=== PATIENT | female | born 1995 | race Caucasian/White ===

== ENCOUNTER 2016-09-20 12:23 | Day surgery (SDC) | payer OTHER ==
[~2016-09-20] VITALS: Ht 152.4 cm; Wt 41.0 kg
[~2016-09-20 12:23] MED LIST: METO5TAB2 PO; OMEP20CA16 PO; ONDA4TAB95 PO
[2016-09-20 13:17] VITALS: Ht 152.4 cm; Wt 41.0 kg
[2016-09-20 13:38] VITALS: BP 119/76; PULSE 84; RESP 14
[2016-09-20] MEDS ORDERED: LIDOCAINE 2% (SDV) 5 ML INJ ONE (13:59)
[2016-09-20] MEDS ORDERED: PROPOFOL 20 ML ONE ×2 (13:59→14:55)
[2016-09-20 15:03] VITALS: BP 111/70; RESP 22
--- NOTE | 2016-09-20 15:44 | GILP ---
DATE OF PROCEDURE: 09/20/2016 PROCEDURE: Esophagogastroduodenoscopy. INDICATIONS: The patient is a 20-year-old with chronic abdominal pain, chronic nausea, vomiting, history of hematemesis in the past on full medication for the last couple of years. PREOPERATIVE DIAGNOSES: 1. Chronic abdominal pain. 2. Nausea. 3. Vomiting on medication. POSTOPERATIVE DIAGNOSES: 1. Round esophageal erosion noted in the body of the stomach. 2. Mild gastritis in the antral pyloric region. 3. Hiatal hernia. 4. Mild esophagitis. DESCRIPTION OF PROCEDURE: Pros and cons of procedure were discussed with the mother in detail and informed consent taken, then we started the procedure. The mouthpiece was placed. The video upper scope was passed through the oropharyngeal area under direct vision. The arytenoids were normal looking. The arytenoids were not edematous. EG junction was erythematous. Distal esophageal erythema was seen in the stomach. She has a round flat erosion in the body of the stomach, not from the scope suctioning. Mild gastritis in the antral pyloric region was seen. Biopsies were taken from the small bowel and gastric area. On retroflex of the scope, a small part of the esophageal mucosa was seen and EG junction was somewhat patulous. A small hiatal hernia was noted. Distal esophageal biopsy was also taken. PLAN: 1. The patient will continue all her medications at this time and this includes the H2 jamel twice a day and metoclopramide. 2. I will see her back in the office in 2 weeks. Dictated By: RK BUSCH MD CS/NTS Conf#: [id number] DID#: [id number] CC: RK BUSCH MD;*EndCC* MTDD
== END 2016-09-20 16:28 | disposition home or self-care (01) ==
LOC: GIL 12:23
PROVIDERS: ATTEND Specialist
DX: K29.60 Other gastritis without bleeding (principal); K44.9 Diaphragmatic hernia without obstruction or gangrene; K20.8 Other esophagitis
CPT/HCPCS: 43239; 84703; 88305; 88312; Z7610

== ENCOUNTER 2017-11-03 13:17 | Emergency (ER) | END 2017-11-03 17:02 | disposition home or self-care (01) ==